=== PATIENT | male | born 1960 | race Caucasian/White ===

== ENCOUNTER → 2020-09-24 09:00 | Outpatient (BNVA) | payer SELFPAY | PROVIDERS: Visit Provider Physician Assistant Medical | DX: Z02.79 Encounter for issue of other medical certificate (principal) ==

== ENCOUNTER 2021-03-25 08:20 | Outpatient (REF) | payer BC, SELFPAY ==
[2021-03-25 09:09] LABS: Cholesterol 102 mg/dL; HDL Cholesterol 34 mg/dL; LDL Cholesterol Calculated 61 mg/dl; Triglycerides 37 mg/dL
== END 2021-03-25 08:21 | disposition home or self-care (01) ==
LOC: HO.LAB 08:20
PROVIDERS: PCP Physician Assistant Medical; Visit Provider Internal Medicine Cardiovascular Disease
DX: I25.2 Old myocardial infarction (principal)
CPT/HCPCS: 36415; 80061

== ENCOUNTER → 2021-09-20 08:53 | Outpatient (BNVA) | payer SELFPAY | PROVIDERS: PCP Physician Assistant Medical; Visit Provider Physician Assistant Medical | DX: Z02.79 Encounter for issue of other medical certificate (principal) ==

== ENCOUNTER 2022-04-21 08:49 | Outpatient (REF) | payer BC, SELFPAY ==
[2022-04-21 09:56] LABS: Alanine Aminotransferase 38 U/L (0-40); Alkaline Phosphatase 106 U/L (39-117); Anion Gap 12 (12-20); Aspartate Amino Transferase 32 U/L (5-37); Bilirubin Total 0.6 mg/dL (0.0-1.0); Blood Urea Nitrogen 16 mg/dL (9-16); Calcium 9.2 mg/dL (8.4-10.2); Carbon Dioxide 27 mmol/L (22-29); Chloride 105 mmol/L (96-108); Cholesterol 102 mg/dL; Estimated Glomerular Filt Rate > 60; Glucose Random 89 mg/dL (60-115); HDL Cholesterol 30 mg/dL; LDL Cholesterol Calculated 49 mg/dl; Potassium 4.3 mmol/L (3.3-5.1); Sodium 140 mmol/L (135-145); Triglycerides 115 mg/dL
[2022-04-21 10:34] LABS: Prostate Specific Antigen Scr 1.47 ng/mL (<0.05-4.0)
== END 2022-04-21 08:50 | disposition home or self-care (01) ==
LOC: HO.LAB 08:49
PROVIDERS: PCP Physician Assistant Medical; Visit Provider Physician Assistant
DX: I25.10 Atherosclerotic heart disease of native coronary artery without angina pectoris (principal); I25.83 Coronary atherosclerosis due to lipid rich plaque; E78.1 Pure hyperglyceridemia; Z12.5 Encounter for screening for malignant neoplasm of prostate
CPT/HCPCS: 36415; 80053; 80061; 84153

== ENCOUNTER 2022-06-27 09:10 | Outpatient (REF) | payer BC, SELFPAY ==
[2022-06-27 11:46] LABS: Alanine Aminotransferase 42 U/L (0-40); Albumin Level 4.3 g/dL (3.5-5.0); Alkaline Phosphatase 110 U/L (39-117); Anion Gap 12 (12-20); Aspartate Amino Transferase 32 U/L (5-37); Bilirubin Total 0.7 mg/dL (0.0-1.0); Blood Urea Nitrogen 22 mg/dL (9-16); Carbon Dioxide 25 mmol/L (22-29); Chloride 108 mmol/L (96-108); Cholesterol 106 mg/dL; Estimated Glomerular Filt Rate > 60; Glucose Random 85 mg/dL (60-115); HDL Cholesterol 32 mg/dL; LDL Cholesterol Calculated 62 mg/dl; Potassium 4.4 mmol/L (3.3-5.1); Sodium 141 mmol/L (135-145); Total Protein 7.2 g/dL (6.5-8.0); Triglycerides 60 mg/dL
[2022-06-27 12:02] LABS: Prostate Specific Antigen Scr 1.01 ng/mL (<0.05-4.0)
== END 2022-06-27 09:11 | disposition home or self-care (01) ==
LOC: HO.LAB 09:10
PROVIDERS: PCP Physician Assistant Medical; Visit Provider Physician Assistant Medical
DX: E78.1 Pure hyperglyceridemia (principal); E78.00 Pure hypercholesterolemia, unspecified; I25.10 Atherosclerotic heart disease of native coronary artery without angina pectoris; I25.83 Coronary atherosclerosis due to lipid rich plaque; Z12.5 Encounter for screening for malignant neoplasm of prostate
CPT/HCPCS: 36415; 80053; 80061; 84153

== ENCOUNTER → 2022-09-15 08:50 | Outpatient (BNVA) | payer SELFPAY | PROVIDERS: PCP Physician Assistant Medical; Visit Provider Physician Assistant Medical | DX: Z02.79 Encounter for issue of other medical certificate (principal) ==

== ENCOUNTER 2022-11-10 07:00 | Day surgery (SDC) | payer BC, SELFPAY ==
[2022-11-10 06:28] VITALS: BMI 26.6
--- OUTSIDE RECORDS SUMMARY | 2022-11-10 07:02 | XMS_ITS ---
Author Name Josh Lew Jr Address [address] [place] [address] Organization [facility] Address [address] [place] [address] Care Team Providers Care Frame Opener Name Role Phone Vipin [email or web address] Unavailable PROBLEMS Type Condition ICD9-CM Code QIA97-BM Code Onset Dates Condition Status SNOMED Code Problem Colon cancer screening Z12.11 Active 946369986 Problem Personal history of colonic polyps Z86.010 Active [id number] Problem Long-term use of aspirin therapy Z79.82 Active [id number] 101 Problem Encounter for other preprocedural examination Z01.818 Active [id number] ALLERGIES Substance Reaction Event Type Date Status seasonal Unknown Non Drug Allergy Sep, Active ENCOUNTERS Encounter Location Date Diagnosis [facility] Outpatient [address] [place] [id number] Nov, [facility] [address] [place] [id number] Sep, Colon cancer screening Z12.11 ; Encounter for other preprocedural examination Z01.818 ; Personal history of colonic polyps Z86.010 and Long-term use of aspirin therapy Z79.82 IMMUNIZATIONS Vaccine Route Administration Date Status Influenza Unknown Jan 24, 2022 Administered SOCIAL HISTORY Qualifiers Date Never Smoker REASON FOR REFERRAL FUNCTIONAL STATUS PLAN OF CARE Activity Details VITAL SIGNS Weight 180 lbs 2022-09-13 Height 69 in 2022-09-13 BMI 26.58 kg/m2 2022-09-13 Temperature 99.3 degrees Fahrenheit Blood pressure systolic 000 mm Hg Blood pressure diastolic 00 mm Hg 2022-09 MEDICATIONS Medication Instructions Dosage Frequency Start Date End Date Duration Status Losartan Potassium 25 MG 90 Acti ve Sildenafil Citrate 100 MG TAKE 1/2 TABLET BY MOUTH ONCE A DAY NEEDED FOR ERECTILE DYSFUNCTION 60 Active MiraLax (colon prep) 17 GM/SCOOP Orally begin at 5:00 p.m. the day before the procedure mixed with Gatorade or Crystal Light Sep, 1 day Active Marah Allergy 180 MG Orally Once a day 1 tablet Swallow whole with water; do not take with fruit juices. 24h 30 day(s) Active Metoprolol Succinate ER 25 MG 90 Active Atorvastatin Calcium 80 MG 90 Active PROCEDURES Procedure Date Ordered Result Body Site PATIENT NOT ELIG D/T ACTIVE DX HTN September 13, 2022 Pt scrn tbco id as non user September 13, 2022 DOC MEDS VERIFIED W/PT OR RE September 13, 2022 COLORECTAL CA SCREEN DOC REV September 13, 2022 RESULTS No Results REASON FOR VISIT screening, hx polyps, Patient presents today or a discuss colonoscopy Insurance Providers Health Insurance Type Health Plan Insurance Address Health Plan Insurance Phone Health Plan Insurance Name Health Plan Coverage Dates Member ID Patient Relationship to Subscriber Patient Address Patient Phone Patient Name Patient Date of Subscriber ID Subscriber Name Subscriber Date of Group No [employer] [id number] [facility] [id number] [employer] self ROLF HENDERSON [id number]
[2022-11-10 07:13] VITALS: BP 136/85; PULSE 52; RESP 18; TEMP 36.1; O2SAT 99
[2022-11-10] MEDS: Lactated Ringers 1,000 ML 100 ML IVCONT (07:25)
--- NOTE | 2022-11-10 08:24 | MHC.SHP ---
Pre-Procedural Eval Section A Date of Service: 11/10/22 Section B Chief Complaint: hx of colonic polyp,screening Details of Present Illness: see H&Pno changes Relevant Family History (Specify if Yes): No Relevant Social History: None Present Medications: see Short Stay Collaborative assessment Medical History: No relevant PMH History of Previous Operations: No relevant previous surgery Allergies: Allergies Allergy/AdvReac Type Severity Reaction Status Date / Time Seasonal Allergies Allergy Unknown Verified 11/09/22 13:12 Review of Systems Sugical H&P ROS: Negative: Constitution, Cardiovascular, Respiratory, Neurological, Psychiatric, Hem-Onc, Allergic/Immunologic, Gastrointestinal, Genitourinary, Musculoskeletal, Integumentary, Endocrine and Eyes/Ears/Nose/Throat Exam Surgical H&P Exam: Normal: HEENT, Normal: Heart, Normal: Lungs, Normal: Extremities, Normal: Abdomen, Normal: Skin and Normal: Neurological Plan Diagnosis/Plan: Unchanged I have reviewed the history and physical and performed a pertinent physical examination on my patient. No changes have occurred unless specified. Time Spent With Patient Time: Total time managing care of this patient today ____ minutes.
[2022-11-10 09:00] VITALS: BP 97/62; PULSE 60; RESP 16; TEMP 36.3; O2SAT 94
--- NOTE | 2022-11-10 09:11 | PM.OP ---
Brief Operative Note Date of Service: 11/10/22 Pre-op diagnosis: sceening Post-op diagnosis: same Procedure: colonoscopy Surgeon: Josh Lew Anesthesia: MAC Estimated blood loss (mL): 2 Pathology: other Condition: stable Disposition: PACU
[2022-11-10 09:15] VITALS: BP 90/57; PULSE 53; RESP 16; TEMP 36.1; O2SAT 92
--- NOTE | 2022-11-10 09:19 | P.CONAN_ITS ---
HPI - Anesthesia Eval Consult details Narrative: screening [facility] Past Medical History Medical History (Updated 11/09/22 @ 13:13 by Blessing Kang RN) CAD (coronary artery disease) Colon polyps HTN (hypertension) Hyperlipidemia Family History Family history of problems with anesthesia: No Surgical History Surgical History (Updated 11/09/22 @ 13:13 by Blessing Kang RN) H/O colonoscopy H/O foot surgery H/O hand surgery History of Problems with Anesthesia: No Social History Social History Patient Tobacco Use Status: Never used Tobacco Are you DNR?: No Advance Directives: No Advance Directives Information Provided: Yes Meds Allergies Allergy/AdvReac Type Severity Reaction Status Date / Time Seasonal Allergies Allergy Unknown Verified 11/09/22 13:12 Active Medications: Current Medications Lactated Ringer's (Lr) 1,000 mls @ 100 mls/hr IVCONT .Q10H ELYSSA Last Admin: 11/10/22 07:25 Dose: 100 mls/hr Home Medications Medication Instructions Recorded Confirmed Last Taken Type atorvastatin 80 mg tablet 80 mg PO DAILY 11/09/22 11/09/22 Unknown History betamethasone dipropionate 0.05 % topical BID PRN Rash 11/09/22 Unknown History topical ointment losartan 25 mg tablet 25 mg PO DAILY 11/09/22 11/09/22 Unknown History metoprolol succinate 25 mg 25 mg PO DAILY 11/09/22 11/09/22 11/10/22 History tablet,extended release 24 hr naproxen 500 mg tablet 500 mg PO BID PRN Pain 11/09/22 11/09/22 Unknown History oxycodone 5 mg tablet 5 mg PO QID pain 11/09/22 11/09/22 Unknown History prednisone 10 mg tablet mg PO 11/09/22 11/09/22 Unknown History sildenafil 100 mg tablet 50 mg PO DAILY PRN intercourse 11/09/22 11/09/22 Unknown History aspirin 81 mg tablet,delayed 81 mg PO DAILY 11/10/22 11/10/22 10/31/22 History release Exam Exam Date and Time: November 10, 2022918 Height,Weight and Vital Signs: Height 5 ft 9 in Weight 81.647 kg Last Vital Signs Temp 97 F 11/10/22 09:15 Pulse 53 11/10/22 09:15 Resp 16 11/10/22 09:15 BP 90/57 L 11/10/22 09:15 Pulse Ox 92 11/10/22 09:15 O2 Del Method Room Air 11/10/22 09:15 Airway Mallampati Class: II TM Dist: >3cm Neck ROM: Full Loose/Missing/Broken Teeth: No Heart: rr Lungs: cta Assessment and Plan Assessment Anesthesia Assessment: Anesthesia Plan Discussed and Chart Reviewed Final Anesthetic Review Family History of Problems with Anesthesia: No History of Problems with Anesthesia: No NPO: Yes ASA Class: II Final Preanesthetic Review: No Changes in Pt Med Stat, Meds/Allgs Chart Reviewed, Consent Obtained/Reviewed and Anes Risks/Benef Reviewed Patient Risk: Low Procedure Risk: Low Anesthetic Plan Anesthetic Plan: MAC: Disposition: Standard PACU
[2022-11-10 09:30] VITALS: BP 113/68; PULSE 57; RESP 16; TEMP 36.1; O2SAT 96
[2022-11-10 09:45] VITALS: BP 113/67; PULSE 57; RESP 16; TEMP 36.1; O2SAT 99
--- NOTE | 2022-11-10 10:14 | OP_ITS ---
DATE OF SERVICE: 11/10/2022 SURGEON: Josh Lew MD INDICATIONS: Colon cancer screening. PREOPERATIVE DIAGNOSIS: POSTOPERATIVE DIAGNOSIS: PROCEDURE PERFORMED: Colonoscopy to the terminal ileum with biopsy. ESTIMATED BLOOD LOSS: COMPLICATIONS: ANESTHESIA: Monitored anesthesia care. ASSISTANTS: SPECIMENS: DESCRIPTION OF PROCEDURE: A history and physical was performed. The risks and benefits of the procedure were explained to the patient. Informed consent was obtained. The patient was placed in the left lateral decubitus position. Digital rectal exam was performed and was found to be normal. The Olympus pediatric video colonoscope was introduced into the rectum and advanced to the cecum. The cecum was identified by transillumination, palpation, identification of ileocecal valve. Examination was performed. The scope was removed. He tolerated the procedure well and was returned to the recovery area in stable condition. FINDINGS: The terminal ileum was normal. Visualized colonic mucosa was normal. Quality of the prep was good. In the cecum was a less than 5 mm sessile polyp. This was removed with a biopsy forceps. No other polyps were identified. Retroflexed examination was normal. IMPRESSION: Normal colonoscopy, colon polyp. RECOMMENDATION: Follow up the biopsy results MD MARY JANE Rodriguez/CARITO / [id number]
== END 2022-11-10 10:00 | disposition home or self-care (01) ==
PROVIDERS: PCP Physician Assistant Medical; Visit Provider Internal Medicine Gastroenterology
PROC: 0DJD8ZZ Inspection of Lower Intestinal Tract, Via Natural or Artificial Opening Endoscopic (ICD-10-PCS; CPT 45378; principal; 2022-11-10 08:10)
DX: Z12.11 Encounter for screening for malignant neoplasm of colon (principal); Z86.010 Personal history of colon polyps; D12.0 Benign neoplasm of cecum; I25.10 Atherosclerotic heart disease of native coronary artery without angina pectoris; Z95.5 Presence of coronary angioplasty implant and graft; I10 Essential (primary) hypertension; E78.5 Hyperlipidemia, unspecified; Z79.82 Long term (current) use of aspirin; Z79.899 Other long term (current) drug therapy
CPT/HCPCS: 45380; 88305; J0330

== ENCOUNTER 2023-05-25 10:02 | Outpatient (REF) | payer BC, SELFPAY ==
[2023-05-25 10:47] LABS: Alanine Aminotransferase 44 U/L (0-40); Albumin Level 3.9 g/dL (3.5-5.0); Alkaline Phosphatase 121 U/L (39-117); Anion Gap 10 (12-20); Aspartate Amino Transferase 29 U/L (5-37); Bilirubin Total 0.5 mg/dL (0.0-1.0); Blood Urea Nitrogen 18 mg/dL (9-16); Calcium 9.1 mg/dL (8.4-10.2); Carbon Dioxide 27 mmol/L (22-29); Chloride 109 mmol/L (96-108); Cholesterol 102 mg/dL (<200); Estimated Glomerular Filt Rate > 60; Glucose Random 99 mg/dL (60-115); HDL Cholesterol 30 mg/dL (>40); LDL Cholesterol Calculated 58 mg/dL (<100); Potassium 3.9 mmol/L (3.3-5.1); Sodium 142 mmol/L (135-145); Total Protein 6.8 g/dL (6.5-8.0); Triglycerides 70 mg/dL (<150)
[2023-05-25 11:05] LABS: Prostate Specific Antigen Scr 1.22 ng/mL (<0.05-4.0)
== END 2023-05-25 10:03 | disposition home or self-care (01) ==
LOC: HO.LAB 10:02
PROVIDERS: Visit Provider Physician Assistant Medical
DX: Z12.5 Encounter for screening for malignant neoplasm of prostate (principal); I25.83 Coronary atherosclerosis due to lipid rich plaque; E78.00 Pure hypercholesterolemia, unspecified; E87.1 Hypo-osmolality and hyponatremia; J45.20 Mild intermittent asthma, uncomplicated
CPT/HCPCS: 36415; 80053; 80061; 84153

== ENCOUNTER 2023-06-01 08:17 | Outpatient (REF) | payer BC, SELFPAY | END 2023-06-01 08:18 | disposition home or self-care (01) | LOC: HO.SH 08:17 | PROVIDERS: PCP Physician Assistant Medical; Visit Provider Physician Assistant Medical | DX: Z01.118 Encounter for examination of ears and hearing with other abnormal findings (principal); H90.3 Sensorineural hearing loss, bilateral | CPT/HCPCS: 92557 ==